=== PATIENT | male | born 1965 | race Caucasian/White ===

== ENCOUNTER → 2017-01-26 | Outpatient (CLI) | payer OTHER | END | disposition home or self-care (01) | LOC: PETCFH 11:34 | PROVIDERS: ATTEND Internal Medicine Hematology & Oncology | DX: C79.51 Secondary malignant neoplasm of bone (principal); C61 Malignant neoplasm of prostate | CPT/HCPCS: 78306; A9503 ==

== ENCOUNTER → 2017-01-26 | Outpatient (CLI) | payer OTHER ==
[~2017-01-26] MED LIST: OMNIPAQUE 350 MG/ML, 100ML BOTTLE ONE
== END | disposition home or self-care (01) ==
LOC: CFH 11:32
PROVIDERS: ATTEND Internal Medicine
DX: C79.51 Secondary malignant neoplasm of bone (principal); C61 Malignant neoplasm of prostate; M89.8X8 Other specified disorders of bone, other site; I77.810 Thoracic aortic ectasia; I70.0 Atherosclerosis of aorta; K76.0 Fatty (change of) liver, not elsewhere classified; D73.89 Other diseases of spleen
CPT/HCPCS: 71260; 74177; 82565; Q9967

== ENCOUNTER 2019-04-03 09:47 | Day surgery (SDC) | payer OTHER ==
[~2019-04-03] VITALS: Ht 177.8 cm; Wt 133.0 kg
[2019-04-03] MEDS ORDERED: SODIUM CHLORIDE 0.9% 1,000 ML IV SCH (10:30)
[2019-04-03 10:32] VITALS: BP 144/91
[2019-04-03] MEDS ORDERED: PLEASE ENTER ALLERGIES MC SCH (11:00)
[2019-04-03 11:09] LABS: INTERNATIONAL NORMALIZED RATIO 1.05 (0.93-1.1)
[2019-04-03] MEDS ORDERED: FENTANYL PF 100 MCG/2ML ONE (12:39)
[2019-04-03] MEDS ORDERED: MIDAZOLAM 1 MG/ML, 5ML ONE (12:39)
[2019-04-03] MEDS ORDERED: NALOXONE 1 MG/ML, 2ML ONE (12:39)
[2019-04-03] MEDS ORDERED: FLUMAZENIL 0.1 MG/1 ML, 5ML ONE (12:39)
[2019-04-03] MEDS ORDERED: LIDOCAINE 1%, 10ML ONE (12:48)
== END 2019-04-03 14:42 | disposition home or self-care (01) ==
LOC: OUT 09:47 → EDSTATUS 12:00 → OUT 14:42
PROVIDERS: ATTEND Internal Medicine Geriatric Medicine
DX: K70.0 Alcoholic fatty liver (principal); K70.2 Alcoholic fibrosis and sclerosis of liver; I10 Essential (primary) hypertension; Z72.89 Other problems related to lifestyle
CPT/HCPCS: 36415; 47000; 76942; 85610; 88307; 88313; 99156; 99157; J2250; J3010; J2310

== ENCOUNTER 2020-05-06 07:38 | Outpatient (CLI) | payer OTHER | END 2020-05-06 23:59 | disposition home or self-care (01) | LOC: ROC 07:38 | PROVIDERS: ATTEND Radiology Radiation Oncology | DX: C61 Malignant neoplasm of prostate (principal); C79.51 Secondary malignant neoplasm of bone | CPT/HCPCS: 99214; G0463 ==